=== PATIENT | male | born 1985 | race Two or more races ===

== ENCOUNTER 2016-05-08 03:34 | Emergency (ER) | payer OTHER ==
[~2016-05-08] VITALS: Ht 170.2 cm; Wt 81.6 kg
[2016-05-08 04:24] VITALS: BP 124/85
[2016-05-08] MEDS ORDERED: IBUPROFEN 600 MG TAB PO ONE (04:45)
== END 2016-05-08 05:06 | disposition home or self-care (01) ==
LOC: ER 03:47
DX: S46.912A Strain of unspecified muscle, fascia and tendon at shoulder and upper arm level, left arm, initial encounter (principal); X58.XXXA Exposure to other specified factors, initial encounter; Y93.89 Activity, other specified; Y99.0 Civilian activity done for income or pay; Y92.69 Other specified industrial and construction area as the place of occurrence of the external cause
CPT/HCPCS: 73030